=== PATIENT | female | born 1975 | race Caucasian/White ===

== ENCOUNTER 2016-12-15 14:36 | Inpatient (IN) | payer BC, MEDICAID ==
[~2016-12-15] VITALS: Ht 165.1 cm; Wt 67.2 kg
[~2016-12-15 14:36] MED LIST: DOXE25 PO; SERT100T PO
[2016-12-15 18:30] VITALS: BP 131/88
[2016-12-15] MEDS ORDERED: INFLUENZA VIRUS VACCINE QVS 2016-17 (3YR+)/PF 60 MCG/0.5 ML SYRINGE IM ONE (19:15)
[2016-12-15 19:30] VITALS: BP 129/73
[2016-12-15 20:30] VITALS: BP 120/61
[2016-12-16 01:30] VITALS: BP 117/76
[2016-12-16 05:30] VITALS: BP 117/66
[2016-12-16 08:09] LABS: EOSINOPHILS % (AUTO) 1.5 % (1.0-6.0); HEMATOCRIT 40.1 % (36-46); HEMOGLOBIN 13.8 g/dL (12.0-16.0); LYMPHOCYTES # (AUTO) 2.6 K/uL (1.0-4.8); LYMPHOCYTES % (AUTO) 26.8 % (22.0-44.0); MEAN CORPUSCULAR HEMOGLOBIN 31.6 pg (26.0-34.0); MEAN CORPUSCULAR HGB CONC 34.3 G/dL (31.0-37.0); MEAN CORPUSCULAR VOLUME 92 fL (80-100); MONOCYTES # (AUTO) 0.5 K/uL (0.1-1.0); MONOCYTES % (AUTO) 5.1 % (2.0-9.0); NEUTROPHILS # (AUTO) 6.3 K/uL (1.8-7.7); NEUTROPHILS % (AUTO) 65.6 % (40.0-70.0); PLATELET COUNT (AUTO) 400 K/uL (150-450); RED BLOOD CELL COUNT(AUTO) 4.35 MIL/uL (4.00-5.20); WHITE BLOOD COUNT (AUTO) 9.6 K/uL (4.5-11.0)
[2016-12-16] MEDS: NICOTINE 14 MG/24 HOUR PATCH TD SCH (08:29)
[2016-12-16 08:35] LABS: HEMOGLOBIN A1C 5.6 % (4.5-6.2)
[2016-12-16 08:45] LABS: ALANINE AMINOTRANSFERASE 47 U/L (12-78); ALBUMIN 3.1 g/dL (3.4-5.0); ANION GAP 11 mmol/L (8-16); ASPARTATE AMINOTRANSFERASE 19 U/L (15-37); BILIRUBIN,TOTAL 0.7 mg/dL (0.1-1.0); CALCIUM, TOTAL 8.8 mg/dL (8.8-10.5); CARBON DIOXIDE 26 mmol/L (22-29); CHLORIDE 103 mmol/L (98-107); CHOL/HDL RATIO 2.1 (3.9-5.7); CREATININE 0.65 mg/dL (0.60-1.30); GLOMERULAR FILTR. RATE CALC > 60 mL/min (>60); POTASSIUM 3.1 mmol/L (3.5-5.1); SODIUM SERUM 140 mmol/L (136-145); THYROID STIMULATING HORMONE 0.74 uIU/mL (0.36-3.74); TOTAL PROTEIN, SERUM 6.5 g/dL (6.4-8.2); UREA NITROGEN, BLOOD 9 mg/dL (7-18)
[2016-12-16 09:30] VITALS: BP 122/73
[2016-12-16 13:30] VITALS: BP 128/76
[2016-12-16] MEDS: LORazepam 2 MG TABLET PO PRN ×2 (14:45→20:32)
[2016-12-16] MEDS ORDERED: POTASSIUM CHLORIDE 20 MEQ ER TABLET PO ONE (16:15)
[2016-12-16 17:31] VITALS: BP 125/84
[2016-12-16] MEDS: QUEtiapine FUMARATE 200 MG TABLET PO SCH (20:31)
[2016-12-16 21:30] VITALS: BP 124/79
[2016-12-16] MEDS ORDERED: ACETAMINOPHEN 325 MG TABLET PO PRN (21:45)
[2016-12-16] MEDS ORDERED: IBUPROFEN 400 MG TABLET PO PRN (21:45)
[2016-12-17 00:19] VITALS: BP 110/69
[2016-12-17 08:28] VITALS: BP 114/76
[2016-12-17] MEDS: NICOTINE 14 MG/24 HOUR PATCH TD SCH (09:31)
[2016-12-17 09:40] LABS: POTASSIUM 3.9 mmol/L (3.5-5.1); THYROID STIMULATING HORMONE 0.88 uIU/mL (0.36-3.74)
[2016-12-17] MEDS: LORazepam 2 MG TABLET PO PRN (10:12)
[2016-12-17 16:28] VITALS: BP 109/70
[2016-12-17] MEDS: QUEtiapine FUMARATE 200 MG TABLET PO SCH (20:24)
[2016-12-17] MEDS: ZOLPIDEM TARTRATE 10 MG TABLET PO PRN (21:04)
[2016-12-18 00:20] VITALS: BP 98/55
[2016-12-18 09:05] VITALS: BP 105/64
[2016-12-18] MEDS: NICOTINE 14 MG/24 HOUR PATCH TD SCH (09:11)
[2016-12-18] MEDS: LORazepam 2 MG TABLET PO PRN ×2 (09:24→17:54)
[2016-12-18 16:05] VITALS: BP 114/71
[2016-12-18] MEDS: QUEtiapine FUMARATE 200 MG TABLET PO SCH (20:21)
[2016-12-18] MEDS: ZOLPIDEM TARTRATE 10 MG TABLET PO PRN (20:49)
[2016-12-19 00:21] VITALS: BP 112/65
[2016-12-19 08:05] VITALS: BP 144/79
[2016-12-19] MEDS: NICOTINE 14 MG/24 HOUR PATCH TD SCH (09:30)
[2016-12-19] MEDS: LORazepam 2 MG TABLET PO PRN ×2 (09:55→16:13)
[2016-12-19 10:51] VITALS: BP 112/71
[2016-12-19 16:08] VITALS: BP 114/65
[2016-12-19] MEDS: QUEtiapine FUMARATE 200 MG TABLET PO SCH (20:13)
[2016-12-19] MEDS: ZOLPIDEM TARTRATE 10 MG TABLET PO PRN (20:21)
[2016-12-20 06:52] VITALS: BP 112/77
[2016-12-20 08:50] VITALS: BP 107/60
[2016-12-20] MEDS: NICOTINE 14 MG/24 HOUR PATCH TD SCH (09:14)
[2016-12-20] MEDS: LORazepam 2 MG TABLET PO PRN (09:32)
[2016-12-20 16:12] VITALS: BP 115/71
[2016-12-20] MEDS: QUEtiapine FUMARATE 200 MG TABLET PO SCH (20:20)
[2016-12-20] MEDS: ZOLPIDEM TARTRATE 10 MG TABLET PO PRN (21:01)
[2016-12-21 06:55] VITALS: BP 117/69
[2016-12-21] MEDS: NICOTINE 14 MG/24 HOUR PATCH TD SCH (08:29)
[2016-12-21 08:59] VITALS: BP 117/76
[2016-12-21] MEDS: LORazepam 2 MG TABLET PO PRN ×2 (09:15→14:40)
[2016-12-21 16:04] VITALS: BP 118/68
[2016-12-21] MEDS: QUEtiapine FUMARATE 200 MG TABLET PO SCH (20:08)
[2016-12-21] MEDS: ZOLPIDEM TARTRATE 10 MG TABLET PO PRN (20:27)
[2016-12-22 01:55] VITALS: BP 104/60
[2016-12-22 08:40] VITALS: BP 111/68
[2016-12-22] MEDS: NICOTINE 14 MG/24 HOUR PATCH TD SCH (08:50)
[2016-12-22] MEDS: LORazepam 2 MG TABLET PO PRN ×2 (09:02→13:06)
[2016-12-22 16:10] VITALS: BP 119/72
[2016-12-22] MEDS: ZOLPIDEM TARTRATE 10 MG TABLET PO PRN (20:19)
[2016-12-22] MEDS: QUEtiapine FUMARATE 200 MG TABLET PO SCH (20:19)
[2016-12-22] MEDS ORDERED: QUET200T PO (23:53)
[2016-12-23 02:09] VITALS: BP 123/74
[2016-12-23 06:43] VITALS: BP 120/74
[2016-12-23] MEDS: LORazepam 2 MG TABLET PO PRN (06:53)
[2016-12-23 08:33] VITALS: BP 117/79
[2016-12-23] MEDS: NICOTINE 14 MG/24 HOUR PATCH TD SCH (09:13)
== END 2016-12-23 13:50 | disposition home or self-care (01) | DRG 885 ==
LOC: B2S 17:42 → EDSTATUS 17:50 → B2X 12-17 16:42 → B2S 12-18 14:27 → B3A 12-19 17:20
PROVIDERS: ADMIT Psychiatry & Neurology Child & Adolescent Psychiatry
DX: F31.4 Bipolar disorder, current episode depressed, severe, without psychotic features (principal); R45.851 Suicidal ideations; F17.210 Nicotine dependence, cigarettes, uncomplicated; I73.00 Raynaud's syndrome without gangrene; F41.9 Anxiety disorder, unspecified; E87.6 Hypokalemia; E78.1 Pure hyperglyceridemia; F20.9 Schizophrenia, unspecified; F19.10 Other psychoactive substance abuse, uncomplicated; Z71.51 Drug abuse counseling and surveillance of drug abuser; Z91.018 Allergy to other foods; Z72.89 Other problems related to lifestyle; Z91.5 Personal history of self-harm; Z79.899 Other long term (current) drug therapy
CPT/HCPCS: 83036; 84132; 84439; 84443; 87081